=== PATIENT | female | born 1975 | race Caucasian/White ===

== ENCOUNTER 2020-06-08 14:34 | Outpatient (CLI) | payer OTHER, SELFPAY | END 2020-06-08 14:35 | disposition home or self-care (01) | LOC: ANHCOVIDVC 14:35 | PROVIDERS: PCP Family Medicine | DX: Z23 Encounter for immunization (principal) | CPT/HCPCS: 0001A; 91300 ==

== ENCOUNTER 2020-06-29 14:32 | Outpatient (CLI) | payer OTHER, SELFPAY | END 2020-06-29 14:33 | disposition home or self-care (01) | LOC: ANHCOVIDVC 14:32 | PROVIDERS: PCP Family Medicine | DX: Z23 Encounter for immunization (principal) | CPT/HCPCS: 0002A; 91300 ==